=== PATIENT | male | born 1970 | race African-American/Black ===

== ENCOUNTER 2022-03-28 21:48 | Emergency (ER) | payer OTHER ==
[~2022-03-28] VITALS: Ht 188 cm; Wt 100.0 kg
[2022-03-28] MEDS ORDERED: ACETAMINOPHEN 325MG TABLET PO ONE (23:15)
[2022-03-28] MEDS ORDERED: ACETAMINOPHEN 325MG TABLET PO STA (23:22)
[2022-03-28] MEDS ORDERED: SODIUM CHLORIDE 0.9% 1000ML BAG (SEPSIS BOLUS) IV ONE (23:30)
[2022-03-29 00:06] LABS: HEMATOCRIT. 38.6 % (42.0-52.0); HEMOGLOBIN. 12.8 g/dL (14.0-18.0); MEAN CORPUSCULAR HEMOGLOBIN 31.8 pg (28.0-32.0); MEAN CORPUSCULAR VOLUME 95.7 fL (80.0-94.0); MEAN PLATELET VOLUME 8.1 fl (7.4-10.4); PLATELET 219 x1000/uL (130-400); RED BLOOD CELL COUNT 4.03 mill/uL (4.7-6.1); RED CELL DISTRIBUTION WIDTH 14.1 % (11.6-14.6)
[2022-03-29 00:07] LABS: CHLORIDE 108 mEq/L (98-107)
[2022-03-29] MEDS ORDERED: CEFTRIAXONE 1 G PREMIX 50 ML IV ONE (01:00)
[2022-03-29] MEDS ORDERED: CEFTRIAXONE 1 G PREMIX 50 ML IV NR (01:15)
[2022-03-29] MEDS ORDERED: IOHEXOL-300 100 ML BOTTLE ONE (01:55)
[2022-03-29 04:41] LABS: CLARITY URINE CLEAR (CLEAR); COLOR URINE YELLOW (YELLOW); KETONES URINE NEGATIVE (NEGATIVE); LEUKOCYTE ESTERASE URINE NEGATIVE (NEGATIVE); NITRITE URINE NEGATIVE (NEGATIVE); OCCULT BLOOD URINE NEGATIVE (NEGATIVE); PH URINE 5.5 (4.5-8.0); PROTEIN URINE TRACE (NEGATIVE); SPECIFIC GRAVITY URINE 1.013 (1.005-1.030)
[2022-03-29 05:21] LABS: PLATELET ESTIMATE NORMAL
[2022-03-29] MEDS ORDERED: HYDROCODONE/ACETAMINOPHEN 5/325MG TABLET PO ONE (05:30)
[2022-03-29] MEDS ORDERED: CLIN-194 MT (05:54)
[2022-03-29 05:57] VITALS: BP 109/79
[2022-03-29] MEDS ORDERED: HYDR-4001 MT (06:07)
== END 2022-03-29 06:14 | disposition home or self-care (01) ==
LOC: ER 21:48
DX: L03.811 Cellulitis of head [any part, except face] (principal); R56.9 Unspecified convulsions; Z20.822 Contact with and (suspected) exposure to COVID-19
CPT/HCPCS: 36415; 70450; 70492; 71045; 71250; 80053; 81003; 83605; 85025; 87040; 87426; 93005; 96361; 96365; 99285; C9803; J0696; J7030; Q9967

== ENCOUNTER 2022-04-20 13:22 | Emergency (ER) | payer OTHER ==
[~2022-04-20] VITALS: Ht 190.5 cm; Wt 82.0 kg
[~2022-04-20 13:22] MED LIST: CLIN-194 MT; HYDR-4001 MT
[2022-04-20] MEDS ORDERED: HYDR-4001 MT (15:29)
[2022-04-20 15:42] VITALS: BP 138/84
== END 2022-04-20 15:43 | disposition home or self-care (01) ==
LOC: ER 13:22
DX: Z48.00 Encounter for change or removal of nonsurgical wound dressing (principal)
CPT/HCPCS: 99281